=== PATIENT | male | born 1950 | race Hispanic/Latino ===

== ENCOUNTER 2017-06-01 17:47 | Emergency (ER) | payer SELFPAY ==
[2017-06-01] MEDS ORDERED: Furosemide 40 MG/4 ML VIAL ONE (18:24)
[2017-06-01] MEDS ORDERED: Nystatin Cream 15 GM TUBE TOP SCH (18:30)
== END 2017-06-01 18:35 | disposition home or self-care (01) ==
LOC: NAV ERS 17:47
DX: N48.1 Balanitis (principal); I10 Essential (primary) hypertension; E78.5 Hyperlipidemia, unspecified
CPT/HCPCS: 87070; 87077; 87186; 87205; 99283; J1940